=== PATIENT | male | born 1965 | race Caucasian/White ===

== ENCOUNTER 2016-06-29 08:47 | Emergency (ER) | payer MEDICAID ==
[2016-06-29 09:06] LABS: BASOPHIL# 0.1 X 10^3uL (0.0-0.1); BASOPHILS 1.2 % (0.0-2.0); EOSINOPHILS 3.7 % (0.0-6.0); EOSINOPHILS# 0.2 X 10^3uL (0.0-0.4); HEMATOCRIT 49.7 % (42.0-54.0); HEMOGLOBIN 17.3 g/dL (14.0-18.0); LYMPHOCYTES 50.2 % (20.0-40.0); LYMPHOCYTES# 2.3 X 10^3uL (0.8-3.8); MEAN CELL VOLUME 95.3 fL (84.0-102.0); MEAN CORPUS. HGB CONCENTRATION 34.8 g/dL (32.0-36.0); MEAN CORPUSCULAR HEMOGLOBIN 33.2 pg (29.0-35.0); MEAN PLATELET VOLUME 6.9 fL (7.4-10.4); MONOCYTES 9.3 % (2.0-10.0); MONOCYTES# 0.5 X 10^3uL (0.2-1.0); NEUTROPHILS 35.6 % (54.0-75.0); NEUTROPHILS# 1.8 X 10^3uL (2.6-6.7); PLATELET COUNT 246 X 10^3uL (130-440); RED BLOOD COUNT 5.22 X 10^6uL (4.20-6.10); RED CELL DISTRIBUTION WIDTH 13.1 % (11.5-14.5); WHITE BLOOD COUNT 4.9 X 10^3uL (3.9-10.7)
[2016-06-29] MEDS ORDERED: THIAMINE HCL 200 MG/2 ML VIAL ONE (09:12)
[2016-06-29] MEDS ORDERED: MAGNESIUM SULFATE 1 GM/2 ML VIAL ONE (09:12)
[2016-06-29] MEDS ORDERED: MULTIVITAMINS 10 ML VIAL IV ONE (09:13)
[2016-06-29] MEDS ORDERED: NORMAL SALINE 1,000 ML IV ONE (09:13)
[2016-06-29 09:27] LABS: ALBUMIN 4.2 g/dL (3.5-5.0); ALKALINE PHOSPHATASE 77 U/L (38-126); ALT 185 U/L (21-72); AMYLASE 31 U/L (30-110); AST 134 U/L (17-59); BILIRUBIN, DIRECT 0.6 mg/dL (0.0-0.4); BLOOD UREA NITROGEN 10 mg/dL (9-20); CALCIUM 8.5 mg/dL (8.4-10.2); CHLORIDE 109 mmol/L (98-107); EST GLOMERULAR FILTRATION RATE > 60 mL/min; ETHYL ALCOHOL 168 mg/dL (<10); GLUCOSE 104 mg/dL (70-100); LIPASE 184 U/L (23-300); MAGNESIUM 2.1 mg/dL (1.6-2.3); POTASSIUM 3.8 mmol/L (3.5-5.1); SODIUM 150 mmol/L (137-145); TOTAL PROTEIN 8.1 g/dL (6.3-8.2)
[2016-06-29] MEDS ORDERED: NICOTINE 21 MG PATCH ONE (09:28)
[2016-06-29 09:30] LABS: ACETAMINOPHEN < 10.0 ug/mL (10.0-30.0); SALICYLATE < 1.0 mg/dL (<20.0)
[2016-06-29] MEDS ORDERED: LORazepam 2 MG/ML INJ ONE ×3 (09:55→15:22)
[2016-06-29 09:56] LABS: THYROID STIMULATING HORMONE 0.85 uIU/mL (0.47-4.68)
--- NOTE | 2016-06-29 13:42 | ER PHYSICIAN DOCUMENTATION ---
Physician Documentation [facility] Name:Mansoor Tony Age:50 yrs Sex:Male :1965 Arrival Date:06/29/2016 Time:08:47 BedTrauma A Private MD:[facility] ED Luis Alberto Dong Disposition: 06/29 12:18 Chart complete. tl1 Disposition: 06/29/16 12:47 Transfer ordered to [facility]. Diagnosis are Alcohol (ETOH) Withdrawal, Adjustment Disorder w/Depressed Mood, Suicidal Ideations. - Reason for transfer: Specialty. - Accepting physician is Dr Bindu Higuera. - Condition is Good. COBRA Form completed? Yes Transfer - Mode of Transportation Ambulance HPI: 09:12 This 50 yrs old Male presents to ER via EMS with complaints of ETOH tl1 withdrawal and SI. 12:00 The patient presents to the emergency department with depression, a history of tl1 substance abuse, Type: tequila, 10 25 oz Margaritas a day.. Onset: The symptom(s)/episode began/occurred many years ago. Past psychiatric history: Prior diagnosis: depression, the patient does not have a previous inpatient psychiatric history, the patient's last psychiatric treatment was years ago. Severity of symptoms: At their worst the symptoms were severe in the emergency department the symptoms are unchanged. For the last 3 days he has had ongoing thoughts of suicide and his housemate has noted a knife by his bedside since then. He has had, at times, a plan to kill himself with the knife. He says he cannot have guns, but did not say why. Denies prior suicide attempts, but has been treated for depression in the past. Denies hallucinations or delusions. Stopped drinking 15 hrs [employer]. Does use marijuana. Denies other substance abuse. He is single, broke up with his fiance 6 months ago and lives with a woman, his best friend, in a platonic relationship.. Historical: - Allergies: No known drug Allergies; - Home Meds: 1. reflux medication 2. Wellbutrin XL Oral 3. Pepcid Oral 4. oxygen @ night 5. nicotine 21 mg/24 hr transdermal pt24 1 patch once daily - Tetanus: unknown. - Ebola Screening: : Patient negative for fever greater than or equal to 101.5 degrees Fahrenheit, and additional compatible Ebola Virus Disease symptoms. Patient denies exposure to infectious person. Patient denies travel to an Ebola-affected area in the 21 days before illness onset. No symptoms or risks identified at this time. . - Immunization history: Unable to Obtain. - Social history: Smoking status: Patient uses tobacco products and is smoker, current status unknown. Patient uses alcohol Patient uses alcohol on a daily basis. 10 beers with marguerites daily. marijuana. ROS: 12:10 Constitutional: Positive for fatigue, malaise. tl1 12:10 Abdomen/GI: Positive for abdominal pain, nausea, vomiting, Negative for hematemesis, black/tarry stool, rectal bleeding. 12:10 Psych: Positive for depression, suicidal ideation. 12:10 All other systems are negative. Exam: 12:11 Constitutional: The patient appears alert, awake, obese, in obvious distress, mildly tl1 distressed, obviously ill, restless, uncomfortable, Tremulous, anxious 12:11 Head/face: Exam is negative for acute changes. 12:11 Eyes: Pupils: equal, round, and reactive to light and accomodation. 12:11 ENT: External ear(s): are unremarkable, Mouth: is normal, Posterior pharynx: is normal, Breath odor: EtOH. 12:11 Neck: ROM/movement: is normal, Lymph nodes: no appreciated lymphadenopathy. 12:11 Cardiovascular: Rate: normal, Rhythm: regular, Heart sounds: normal. 12:11 Respiratory: Respirations: no acute changes, Breath sounds: are normal. 12:11 Abdomen/GI: Inspection: abdomen appears normal, Bowel sounds: active, Palpation: soft, mild abdominal tenderness, in all quadrants, Liver: no appreciated palpable abnormalities, tenderness, that is mild. 12:11 Back: CVA tenderness, is absent, vertebral tenderness, is not appreciated. 12:11 Musculoskeletal/extremity: Extremities: all appear grossly normal, with no appreciated pain with palpation. 12:11 Skin: Exam negative for acute changes. 12:11 Neuro: Orientation: is normal, Mentation: is normal, Memory: is normal, Cranial nerves: grossly normal, Motor: moves all fours, Gait: not tested. 12:11 Psych: Behavior/mood is pleasant, cooperative, anxious, depressed, Affect is flat, Oriented to person, place, time, Patient having thoughts of suicide. Judgement / Insight is normal. Delusions/hallucinations are not present. Vital Signs: 08:52 BP 129 / 104; Pulse 81; Resp 13; Temp 99.0(TE); Pulse Ox 94% on R/A; Weight 105.23 kg; cb Height 5 ft. 11 in. (180.34 cm); Pain 8/10; 09:17 BP 121 / 93; Pulse 81; Resp 15; Pulse Ox 94% on R/A; cb 09:30 BP 128 / 95; Pulse 78; Resp 16; Pulse Ox 93% on R/A; cb 09:45 BP 143 / 107; Pulse 78; Resp 18; Pulse Ox 95% on R/A; cb 10:00 BP 163 / 128; Pulse 85; Resp 26; Pulse Ox 95% on R/A; cb 10:16 BP 195 / 147; Pulse 83; Resp 24; cb 10:30 BP 175 / 128; Pulse 85; Resp 18; Pulse Ox 93% on R/A; cb 10:45 BP 149 / 105; Pulse 82; Resp 22; cb 12:34 BP 133 / 81; Pulse 82; Resp 22; Pulse Ox 97% ; cb 08:52 Body Mass Index 32.36 (105.23 kg, 180.34 cm) cb MDM: 09:11 Patient medically screened. tl1 12:16 Differential diagnosis: drug withdrawal. depression. Data reviewed: vital signs, nurses tl1 notes, lab test result(s), cardiac enzymes, CBC, drug level(s), electrolytes, hepatic panel, urinalysis, and as a result, I will *Transfer Patient. Counseling: I had a detailed discussion with the patient and/or guardian regarding: the historical points, exam findings, and any diagnostic results supporting the discharge/admit diagnosis, lab results, the need to transfer to another facility. Medication response: The patient's symptoms have improved. Response to treatment: the patient's symptoms have markedly improved after treatment, and as a result, I will admit patient. Physician consultation: Bindu Higuera was called at 11:00, was contacted at 11:10, regarding patient's condition, need to come to ED to see patient, and will see patient in ED, at [facility].. 06/29 09:20 Order name: CBC AUTO DIF, MDIF/RMOR IF IND; Complete Time: 20:24 EDMS 06/29 20:23 Interpretation: WHITE BLOOD COUNT 4.9; HEMOGLOBIN 17.3; HEMATOCRIT 49.7; PLATELET COUNT tl1 246; NEUTROPHILS 35.6; LYMPHOCYTES 50.2. 06/29 09:30 Order name: BASIC METABOLIC PANEL; Complete Time: 20:24 EDMS 06/29 20:23 Interpretation: SODIUM 150; POTASSIUM 3.8; CHLORIDE 109; CARBON DIOXIDE 28; GLUCOSE tl1 104; BLOOD UREA NITROGEN 10; CREATININE 1.0. 06/29 09:30 Order name: MAGNESIUM; Complete Time: 20:24 EDMS 06/29 20:23 Interpretation: Normal: MAGNESIUM 2.1. 06/29 09:30 Order name: HEPATIC PANEL; Complete Time: 20:24 EDMS 06/29 20:24 Interpretation: Normal Except: ALT 185; AST 134; BILIRUBIN, DIRECT 0.6. 06/29 09:30 Order name: AMYLASE; Complete Time: 20:24 EDMS 06/29 Interpretation: AMYLASE 31; Normal. 06/29 09:30 Order name: LIPASE; Complete Time: 20:24 EDMS 06/29 20:24 Interpretation: Normal: LIPASE 184. 06/29 09:30 Order name: SALICYLATE; Complete Time: 20:24 EDMS 06/29 20:24 Interpretation: Normal: SALICYLATE < 1.0. 06/29 09:30 Order name: ETHYL ALCOHOL; Complete Time: 20:24 EDMS 06/29 20:24 Interpretation: Abnormal: ETHYL ALCOHOL 168. 06/29 09:30 Order name: ACETAMINOPHEN; Complete Time: 20:24 EDMS 06/29 20:24 Interpretation: Normal: ACETAMINOPHEN < 10.0. 06/29 09:58 Order name: THYROID STIMULATING HORMONE; Complete Time: 20:24 EDMS 06/29 20:24 Interpretation: Normal: THYROID STIMULATING HORMONE 0.85. 06/29 10:59 Order name: URINE DRUG SCREEN, QUAL; Complete Time: 20:24 EDMS 06/29 20:24 Interpretation: Normal Except: THC PRESUMPTIVE POS; [place]EN[place] PRESUMPTIVE POS. 06/29 08:57 Order name: I & O; Complete Time: 08:58 cb 06/29 08:57 Order name: NPO; Complete Time: 08:58 cb 06/29 08:57 Order name: Pulse Ox Continuous; Complete Time: 08:58 cb Dispensed Medications: 09:12 Drug: Banana Bag - (NS 0.9% 1000 ml, folic acid 600 mcg, Thiamine 100 mg, Multivitamin cb 10 ml, Magnesium Sulfate 1 grams); Route: IV; Rate: calculated rate; Site: left antecubital; 09:51 Follow up: IV Status: Infusion continued; IV Intake: 1000ml cb 09:25 Drug: Nicotine Patch 1 patches; Route: Transdermal; Site: affected area; cb 12:05 Follow up: Response: No adverse reaction cb 09:49 Drug: Ativan 1 mg; Route: IVP; Site: left antecubital; cb 12:04 Follow up: Response: Marked relief of symptoms cb 09:50 Drug: NS 0.9% 1000 ml; Route: IV; Rate: 125 ml/hr; Site: left antecubital; cb 12:30 Follow up: IV Status: Completed infusion; IV Intake: 800ml cb 10:29 Drug: Ativan 0.5 mg; Route: IVP; Rate: per protocol; Infused Over: 3 mins; Site: left ma antecubital; 12:04 Follow up: Response: Blood pressure is lowered cb Point of Care Testing: Urine Dip: 10:57 pH: 7.0; ; Specific [place]: 1.015; Ketones: Negative; Glucose: Negative; Protein: ma Negative; Leukocytes: Negative; Nitrite: Negative ; Blood: Negative; Bilirubin: Negative ; Urobilinogen: Normal Signatures: Laquita Arrieta RN RN cb Abuso, Melanie, RN RN ma Roberts, Leslie, RN RN lpr Leigh, Tom, MD MD tl1
--- NOTE | 2016-06-29 13:42 | ER NURSING DOCUMENTATION ---
Nurse's Notes [facility] Name:Mansoor Tony Age:50 yrs Sex:Male :1965 Arrival Date:06/29/2016 Time:08:47 BedTrauma A Private MD:[facility] Diagnosis:Alcohol (ETOH) Withdrawal;Adjustment Disorder w/Depressed Mood;Suicidal Ideations Presentation: 06/29 08:50 Care prior to arrival: None. cb 08:50 Activity prior to arrival: Patient was at [facility] and called 911 for alcohol with cb suicide ideation. 08:52 Presenting complaint: EMS states: patient brought form [facility] via EMS due to cb suicidal thoughts and alcohol withdraw. Transition of care: Other [facility]. Notified ED Physician of patient's arrival and CC Dr. Balbuena notified. 08:52 Method Of Arrival: EMS: 410 cb 08:52 Acuity: BRANDEN 2 cb Triage Assessment: 08:55 General: Appears distressed, well groomed, Behavior is cooperative, with tremors. cb 08:55 Pain: Complains of pain in back, posterior aspect of left lateral abdomen, posterior cb aspect of right lateral abdomen, right upper quadrant and left upper quadrant Pain currently is 8 out of 10 on a pain scale. 08:55 EENT: No deficits noted. Neuro: Level of Consciousness is awake, alert, Oriented to cb person, place, time. Cardiovascular: Rhythm is regular. Respiratory: Airway is patent Trachea midline Respiratory effort is even, unlabored, Respiratory pattern is regular, symmetrical. GI: Abdomen is obese, Bowel sounds present X 4 quads. Reports pain all over. : No deficits noted. Derm: No deficits noted. Musculoskeletal: No deficits noted. Historical: - Allergies: No known drug Allergies; - Home Meds: 1. reflux medication 2. Wellbutrin XL Oral 3. Pepcid Oral 4. oxygen @ night 5. nicotine 21 mg/24 hr transdermal pt24 1 patch once daily - Tetanus: unknown. - Ebola Screening: : Patient negative for fever greater than or equal to 101.5 degrees Fahrenheit, and additional compatible Ebola Virus Disease symptoms. Patient denies exposure to infectious person. Patient denies travel to an Ebola-affected area in the 21 days before illness onset. No symptoms or risks identified at this time. . - Immunization history: Unable to Obtain. - Social history: Smoking status: Patient uses tobacco products and is smoker, current status unknown. Patient uses alcohol Patient uses alcohol on a daily basis. 10 beers with marguerites daily. marijuana. Screenin:20 Infectious Disease Risk Hepatitis. Abuse screen: Denies threats or abuse. Denies cb injuries from another. Nutritional screening: No deficits noted. Suicide Risk Assessment: Suicidal Thinking Present - Yes ( 2 points), Past Attempts - No (0 points), Family History of Suicide - Credible Suicide Plan - Yes (3 points), Means to Kill Self Available - Yes (3 points), Has Serious Health Problem - Yes (1 point), Lives Alone -. Vital Signs: 08:52 BP 129 / 104; Pulse 81; Resp 13; Temp 99.0(TE); Pulse Ox 94% on R/A; Weight 105.23 kg; cb Height 5 ft. 11 in. (180.34 cm); Pain 8/10; 09:17 BP 121 / 93; Pulse 81; Resp 15; Pulse Ox 94% on R/A; cb 09:30 BP 128 / 95; Pulse 78; Resp 16; Pulse Ox 93% on R/A; cb 09:45 BP 143 / 107; Pulse 78; Resp 18; Pulse Ox 95% on R/A; cb 10:00 BP 163 / 128; Pulse 85; Resp 26; Pulse Ox 95% on R/A; cb 10:16 BP 195 / 147; Pulse 83; Resp 24; cb 10:30 BP 175 / 128; Pulse 85; Resp 18; Pulse Ox 93% on R/A; cb 10:45 BP 149 / 105; Pulse 82; Resp 22; cb 12:34 BP 133 / 81; Pulse 82; Resp 22; Pulse Ox 97% ; cb 08:52 Body Mass Index 32.36 (105.23 kg, 180.34 cm) cb ED Course: 08:51 Patient arrived in ED. ds 08:52 [facility] is Private Physician. ds 08:52 Laquita Arrieta, HARISH is Primary Nurse. cb 08:54 Triage completed. cb 08:55 Inserted peripheral IV: 18 gauge in left antecubital area and blood collected. cb 08:55 Labs drawn. (by ED staff). Sent per order to lab. cb 09:00 Valuables Remains with patient Patient has correct armband on for positive cb identification. Placed in gown. Bed in low position. Call light in reach. Side rails up X2. Seizure precautions initiated. Seizure pads on bed close monitoring by staff. 09:00 telemetry monitor on. Pulse ox on. NIBP on. Lights dimmed. Warm blanket given. cb 09:10 Luis Alberto Balbuena MD is Attending Physician. tl1 11:45 Diet: Patient given regular meal. cb Administered Medications: 09:12 Drug: Banana Bag - (NS 0.9% 1000 ml, folic acid 600 mcg, Thiamine 100 mg, Multivitamin cb 10 ml, Magnesium Sulfate 1 grams); Route: IV; Rate: calculated rate; Site: left antecubital; 09:51 Follow up: IV Status: Infusion continued; IV Intake: 1000ml cb 09:25 Drug: Nicotine Patch 1 patches; Route: Transdermal; Site: affected area; cb 12:05 Follow up: Response: No adverse reaction cb 09:49 Drug: Ativan 1 mg; Route: IVP; Site: left antecubital; cb 12:04 Follow up: Response: Marked relief of symptoms cb 09:50 Drug: NS 0.9% 1000 ml; Route: IV; Rate: 125 ml/hr; Site: left antecubital; cb 12:30 Follow up: IV Status: Completed infusion; IV Intake: 800ml cb 10:29 Drug: Ativan 0.5 mg; Route: IVP; Rate: per protocol; Infused Over: 3 mins; Site: left ma antecubital; 12:04 Follow up: Response: Blood pressure is lowered cb Point of Care Testing: Urine Dip: 10:57 pH: 7.0; ; Specific [place]: 1.015; Ketones: Negative; Glucose: Negative; Protein: ma Negative; Leukocytes: Negative; Nitrite: Negative ; Blood: Negative; Bilirubin: Negative ; Urobilinogen: Normal Intake: 09:51 IV: 1000ml; Total: 1000ml. cb 12:30 IV: 800ml; Total: 1800ml. cb Outcome: 12:34 Transferred: Patient will be transferred to: [facility] [place]. Facility cb Acceptance Time: June 29, 2016 at 12:34 Patient's face sheet was faxed to accepting facility. Face Sheet included patient's name, address, age, gender, contact information and insurance information. Patient will be transported by: [facility] ground. Report called to: Gianna Nurse and Physician Charting and Notes were sent to Accepting Facility. All tests and/or procedures with results, if applicable, were sent to accepting facility. 12:34 Condition: stable 12:34 Instructed on need for transfer 12:47 ER care complete, transfer ordered by . cb 13:42 Patient left the ED. cb Signatures: Laquita Arrieta, Jessenia Lin RN, cb, RN RN ma Srot, Maria Del Carmen, Reg Reg Wendy Yuen RN RN lpr Leigh, Tom, MD MD tl1
== END 2016-06-29 13:42 | disposition short-term general hospital (02) ==
LOC: EEVIPCON 08:47 → ER 08:47
DX: F10.239 Alcohol dependence with withdrawal, unspecified (principal); F43.21 Adjustment disorder with depressed mood; R45.851 Suicidal ideations; R10.84 Generalized abdominal pain; R53.83 Other fatigue; R53.81 Other malaise; F12.10 Cannabis abuse, uncomplicated; F13.10 Sedative, hypnotic or anxiolytic abuse, uncomplicated; Z79.899 Other long term (current) drug therapy
CPT/HCPCS: 80048; 80076; 80305; 80307; 80320; 80329; 82150; 83690; 83735; 84443; 85025; 96361; 96365; 96375; 96376; 99285; A0425; A0427; A0429; J2060; J3475; J7030; S4990

== ENCOUNTER 2016-07-07 20:48 | Emergency (ER) | payer MEDICAID ==
[2016-07-07 21:12] LABS: URINE MUCUS NONE SEEN (Up to 25%); URINE RBC NONE SEEN (0-5/hpf)
[2016-07-07 21:14] LABS: BASOPHIL# 0.1 X 10^3uL (0.0-0.1); BASOPHILS 1.4 % (0.0-2.0); EOSINOPHILS 2.1 % (0.0-6.0); EOSINOPHILS# 0.2 X 10^3uL (0.0-0.4); HEMATOCRIT 48.2 % (42.0-54.0); HEMOGLOBIN 16.6 g/dL (14.0-18.0); LYMPHOCYTES# 4.7 X 10^3uL (0.8-3.8); MEAN CELL VOLUME 95.3 fL (84.0-102.0); MEAN CORPUS. HGB CONCENTRATION 34.5 g/dL (32.0-36.0); MEAN CORPUSCULAR HEMOGLOBIN 32.9 pg (29.0-35.0); MEAN PLATELET VOLUME 7.5 fL (7.4-10.4); MONOCYTES 12.6 % (2.0-10.0); MONOCYTES# 1.2 X 10^3uL (0.2-1.0); NEUTROPHILS 32.4 % (54.0-75.0); PLATELET COUNT 312 X 10^3uL (130-440); RED BLOOD COUNT 5.06 X 10^6uL (4.20-6.10); WHITE BLOOD COUNT 9.2 X 10^3uL (3.9-10.7)
[2016-07-07 21:23] LABS: LYMPHOCYTES 51.5 % (20.0-40.0)
[2016-07-07 21:24] LABS: URINE APPEARANCE CLEAR; URINE COLOR YELLOW
[2016-07-07 21:28] LABS: ALBUMIN 4.2 g/dL (3.5-5.0); ALKALINE PHOSPHATASE 80 U/L (38-126); ALT 161 U/L (21-72); AST 135 U/L (17-59); BILIRUBIN, DIRECT 0.2 mg/dL (0.0-0.4); BILIRUBIN, TOTAL 0.6 mg/dL (0.2-1.3); BLOOD UREA NITROGEN 7 mg/dL (9-20); CALCIUM 8.6 mg/dL (8.4-10.2); CHLORIDE 109 mmol/L (98-107); EST GLOMERULAR FILTRATION RATE > 60 mL/min; SODIUM 146 mmol/L (137-145); TOTAL PROTEIN 7.7 g/dL (6.3-8.2)
[2016-07-07 21:33] LABS: LIPASE 415 U/L (23-300)
[2016-07-07 21:35] LABS: URINE BACTERIA NONE SEEN (<10/hpf); URINE BILIRUBIN NEGATIVE (NEGATIVE); URINE BLOOD NEGATIVE (NEGATIVE); URINE GLUCOSE NORMAL (NEGATIVE); URINE KETONE NEGATIVE (NEGATIVE); URINE LEUKOCYTE ESTERASE NEGATIVE (NEGATIVE); URINE NITRITE NEGATIVE (NEGATIVE); URINE PROTEIN NEGATIVE (NEG - TRACE); URINE SPECIFIC GRAVITY < or = 1.005 (0.001-1.035); URINE SQUAMOUS EPITHELIAL CELL 0-5/hpf (<= 15/hpf); URINE UROBILINOGEN NORMAL (NEG-1mg/dL); URINE WBC 0-4/hpf (0-4/hpf)
[2016-07-07 21:38] LABS: GLUCOSE 245 mg/dL (70-100); SALICYLATE < 1.0 mg/dL (<20.0)
[2016-07-07 21:39] LABS: ACETAMINOPHEN < 10.0 ug/mL (10.0-30.0); ETHYL ALCOHOL 322 mg/dL (<10)
[2016-07-07] MEDS ORDERED: MAGNESIUM SULFATE 1 GM/2 ML VIAL ONE (21:49)
[2016-07-07] MEDS ORDERED: NORMAL SALINE 1,000 ML IV ONE (21:50)
[2016-07-07] MEDS ORDERED: MULTIVITAMINS 10 ML VIAL IV ONE (21:50)
[2016-07-07] MEDS ORDERED: THIAMINE HCL 200 MG/2 ML VIAL ONE (21:50)
[2016-07-07 21:57] LABS: THYROID STIMULATING HORMONE 1.45 uIU/mL (0.47-4.68)
--- NOTE | 2016-07-07 23:41 | ER NURSING DOCUMENTATION ---
Nurse's Notes [facility] Name:Mansoor Tony Age:50 yrs Sex:Male :1965 Arrival Date:07/07/2016 Time:20:48 BedTrauma A Private MD:Carisa Chen Diagnosis:Major Depression with Suicidal Ideation;Alcohol (ETOH) Intoxication, Nondependent;Alcohol Cirrhosis Liver;Hepatitis C Presentation: 07/07 20:52 Presenting complaint: EMS states: intoxicated, had threatened to kill himself at home lb tonight. recently in detox program last week. Transition of care: Home. 20:52 Acuity: BRANDEN 2 lb 20:52 Method Of Arrival: EMS: 410 lb 21:11 Notified ED Physician of Dr. Royal notified. lb Triage Assessment: 20:56 General: Appears. lb 21:11 General: Appears unkempt, speech slurred due to etoh. Behavior is agitated, restless, lb Smells of alcohol. Pain: Denies pain. Historical: - Allergies: Unable to obtain; - PMHx: Unable to obtain; - PSHx: Unable to obtain; - Tetanus: < 10 years. - Ebola Screening: : Patient negative for fever greater than or equal to 101.5 degrees Fahrenheit, and additional compatible Ebola Virus Disease symptoms. Patient denies exposure to infectious person. Patient denies travel to an Ebola-affected area in the 21 days before illness onset. No symptoms or risks identified at this time. . - Immunization history: Flu Vaccine < 1 year. - Social history: Smoking status: Patient uses tobacco products, current every day smoker. Patient uses alcohol marijuana. - Code Status:: Full code. Screenin:13 Infectious Disease Risk Hepatitis. Abuse screen: Denies threats or abuse. Denies lb injuries from another. Nutritional screening: No deficits noted. Suicide Risk Assessment: Suicidal Thinking Present - Yes ( 2 points), Past Attempts - Yes (1 point), Means to Kill Self Available - Yes (3 points), Has Serious Health Problem - Yes (1 point), Total Suicide Risk Assessment Score: Score of 3 or Greater (Substantial risk for suicide). Patient placement close to nurses station. Assessment: 21:13 See Triage Assessment done by same RN. lb Vital Signs: 21:12 BP 166 / 103; Pulse 96; Resp 22; Pulse Ox 90% on R/A; Weight 103.42 kg; Height 6 ft. lb (182.88 cm); Pain 0/10; 21:35 BP 146 / 97; Pulse 94; Resp 19; Pulse Ox 94% on R/A; Pain 0/10; lb 21:12 Body Mass Index 30.92 (103.42 kg, 182.88 cm) lb ED Course: 20:49 Patient arrived in ED. ma1 20:49 Carisa Chen MD is Private Physician. ma1 20:52 Helen Ruiz is Primary Nurse. lb 20:56 Triage completed. lb 21:15 Valuables Placed in gown. Bed in low position. Call light in reach. Side rails up X2. lb Seizure precautions initiated. Seizure pads on bed close monitoring by staff bedside monitoring initiated. 21:19 Hawk Royal MD is Attending Physician. sc 21:46 Maintain field IV. Dressing intact. Site clean & dry. Gauge & site: #18 right forearm. lb Administered Medications: 21:45 Drug: Banana Bag - (NS 0.9% 1000 ml, folic acid 600 mcg, Thiamine 100 mg, Multivitamin lb 10 ml, Magnesium Sulfate 1 grams); Route: IV; Rate: calculated rate; Site: right forearm; 21:50 Follow up: IV Status: Completed infusion lb Outcome: 21:48 ER care complete, transfer ordered by . sc 22:01 Transferred: Patient will be transferred to: [facility]. Facility lb Acceptance Time: July 07, 2016 at 21:55 Patient's face sheet was faxed to accepting facility. Face Sheet included patient's name, address, age, gender, contact information and insurance information. Patient will be transported by: [facility] ground. Report called to: Armida MOREIRA in ED Nurse and Physician Charting and Notes were sent to Accepting Facility. All tests and/or procedures with results, if applicable, were sent to accepting facility. 22:01 Condition: unchanged 22:01 Report given to Armida MOREIRA 22:04 Instructed on need for transfer lb 23:41 Patient left the ED. lpr Signatures: Hawk Royal MD MD sc Wendy Torres RN RN lpr Helen Ruiz [facility]
--- NOTE | 2016-07-07 23:41 | ER PHYSICIAN DOCUMENTATION ---
Physician Documentation [facility] Name:Mansoor Tony Age:50 yrs Sex:Male :1965 Arrival Date:07/07/2016 Time:20:48 BedTrauma A Private MD:Carisa Chen ED, Scott Disposition: 07/07/16 21:48 Transfer ordered to [facility]. Diagnosis are Major Depression with Suicidal Ideation, Alcohol (ETOH) Intoxication, Nondependent, Alcohol Cirrhosis Liver, Hepatitis C. - Reason for transfer: Specialty. - Accepting physician is Dr. Castro. - Condition is Serious. - Problem is an acute exacerbation. - Symptoms are unchanged. COBRA Form completed? Yes Transfer - Mode of Transportation Ambulance HPI: 07/07 21:34 This 50 yrs old Male presents to ER via EMS with complaints of ETOH Abuse. sc 21:34 The patient presents to the emergency department with depression, a history of sc substance abuse, Type: beer, heroin, Hep C positive from IVDA, suicide ideation. Onset: The symptom(s)/episode began/occurred at an unknown time. Past psychiatric history: the patient has a previous inpatient psychiatric history, last week. Associated signs and symptoms: Pertinent positives; depression, substance abuse. Severity of symptoms: At their worst the symptoms were severe. wants to shoot himself, . Historical: - Allergies: Unable to obtain; - PMHx: Unable to obtain; - PSHx: Unable to obtain; - Tetanus: < 10 years. - Ebola Screening: : Patient negative for fever greater than or equal to 101.5 degrees Fahrenheit, and additional compatible Ebola Virus Disease symptoms. Patient denies exposure to infectious person. Patient denies travel to an Ebola-affected area in the 21 days before illness onset. No symptoms or risks identified at this time. . - Immunization history: Flu Vaccine < 1 year. - Social history: Smoking status: Patient uses tobacco products, current every day smoker. Patient uses alcohol marijuana. - Code Status:: Full code. ROS: 21:35 Constitutional: Negative for fever, chills, and weight loss. sc Eyes: Negative for injury, pain, redness, and discharge. ENT: Negative for injury, pain, and discharge. Neck: Negative for injury, pain, and swelling. Cardiovascular: Negative for chest pain, palpitations, and edema. Respiratory: Negative for shortness of breath, cough, wheezing, and pleuritic chest pain. Abdomen/GI: Negative for abdominal pain, nausea, vomiting, diarrhea, and constipation. Back: Negative for injury and pain. MS/Extremity: Negative for injury and deformity. Skin: Negative for injury, rash, and discoloration. 21:35 Neuro: Negative for headache, weakness, numbness, tingling, and seizure. sc 21:35 Psych: Positive for depression, alcohol dependence, suicidal ideation. Exam: Constitutional: This is a well developed, well nourished patient who is awake, alert, and in no acute distress. Head/Face: Normocephalic, atraumatic. Eyes: Pupils equal round and reactive to light, extra-ocular motions intact. Lids and lashes normal. Conjunctiva and sclera are non-icteric and not injected. Cornea within normal limits. Periorbital areas with no swelling, redness, or edema. ENT: Nares patent. No nasal discharge, no septal abnormalities noted. Tympanic membranes are normal and external auditory canals are clear. Oropharynx with no redness, swelling, or masses, exudates, or evidence of obstruction, uvula midline. Mucous membranes moist. Neck: Trachea midline, no thyromegaly or masses palpated, and no cervical lymphadenopathy. Supple, full range of motion without nuchal rigidity, or vertebral point tenderness. No meningismus. Chest/axilla: Normal chest wall appearance and motion. Nontender with no deformity. No lesions are appreciated. Cardiovascular: Regular rate and rhythm with a normal S1 and S2. No gallops, murmurs, or rubs. Normal PMI, no JVD. No pulse deficits. Respiratory: Lungs have equal breath sounds bilaterally, clear to auscultation and percussion. No rales, rhonchi or wheezes noted. No increased work of breathing, no retractions or nasal flaring. Abdomen/GI: Soft, non-tender, with normal bowel sounds. No distension or tympany. No guarding or rebound. No evidence of tenderness throughout. Back: No spinal tenderness. No costovertebral tenderness. Full range of motion. 21:36 Skin: Warm, dry with normal turgor. Normal color with no rashes, no lesions, and no sc evidence of cellulitis. 21:36 Psych: Behavior/mood is aggressive, suicidal, depressed, Affect is animated, Oriented to person, place, time, Patient having thoughts of suicide. Judgement / Insight is impaired. Delusions/hallucinations are not present. Vital Signs: 21:12 BP 166 / 103; Pulse 96; Resp 22; Pulse Ox 90% on R/A; Weight 103.42 kg; Height 6 ft. lb (182.88 cm); Pain 0/10; 21:35 BP 146 / 97; Pulse 94; Resp 19; Pulse Ox 94% on R/A; Pain 0/10; lb 21:12 Body Mass Index 30.92 (103.42 kg, 182.88 cm) lb MDM: 21:19 Patient medically screened. wi 21:37 Differential diagnosis: depression, intoxication and suicidal ideation. Data reviewed: wi vital signs, nurses notes, old medical records, lab test result(s), and as a result, I will *Transfer Patient. Counseling: I had a detailed discussion with the patient and/or guardian regarding: the historical points, exam findings, and any diagnostic results supporting the discharge/admit diagnosis, lab results, the need to transfer to another facility. 07/07 21:24 Order name: CBC AUTO DIF, MDIF/RMOR IF IND [facility] 07/07 21:48 Interpretation: Normal. wi 07/07 21:36 Order name: UA W/ MICRO -CULTURE IF IND; Complete Time: 21:49 [facility] 07/07 21:49 Interpretation: Normal. wi 02 21:36 Order name: URINE DRUG SCREEN, QUAL; Complete Time: 21:49 [facility] 07/07 21:49 Interpretation: Abnormal: [place]EN[place] PRESUMPTIVE POS. wi 07/07 21:40 Order name: BASIC METABOLIC PANEL [facility] 02 21:49 Interpretation: Normal Except: POTASSIUM 3.0; GLUCOSE 245. wi 07/07 21:40 Order name: HEPATIC PANEL [facility] 07/07 21:49 Interpretation: Normal Except: ALT 161; AST 135. wi 07/07 21:40 Order name: LIPASE EDND 02 21:49 Interpretation: Abnormal: LIPASE 415. wi 02 21:40 Order name: SALICYLATE [facility] 07/07 21:49 Interpretation: Normal. wi 02 21:40 Order name: ETHYL ALCOHOL [facility] 07/07 21:49 Interpretation: Abnormal: ETHYL ALCOHOL 322. wi 07/07 21:40 Order name: ACETAMINOPHEN EDMS 07/07 21:49 Interpretation: Normal. sc 07/07 22:01 Order name: THYROID STIMULATING HORMONE EDND 07/07 21:00 Order name: Continuous Cardiac Monitoring; Complete Time: 21:00 lb 07/07 21:00 Order name: I & O; Complete Time: 21:01 lb 07/07 21:00 Order name: Iv Saline Lock; Complete Time: 21:00 lb 07/07 21:00 Order name: NPO; Complete Time: 21: lb 07/07 21:00 Order name: Pulse Ox Continuous; Complete Time: 21:00 lb 07/07 21:00 Order name: Suicide Precautions; Complete Time: 21:11 lb Dispensed Medications: 21:45 Drug: Banana Bag - (NS 0.9% 1000 ml, folic acid 600 mcg, Thiamine 100 mg, Multivitamin lb 10 ml, Magnesium Sulfate 1 grams); Route: IV; Rate: calculated rate; Site: right forearm; 21:50 Follow up: IV Status: Completed infusion lb Signatures: Hawk Royal MD MD sc Roberts, Leslie, RN RN lpr Helen Ruiz lb
== END 2016-07-07 23:41 | disposition short-term general hospital (02) ==
LOC: EEVIPCON 20:48 → ER 20:48
DX: F32.9 Major depressive disorder, single episode, unspecified (principal); R45.851 Suicidal ideations; K70.30 Alcoholic cirrhosis of liver without ascites; F10.229 Alcohol dependence with intoxication, unspecified; B19.20 Unspecified viral hepatitis C without hepatic coma; E87.6 Hypokalemia; F13.10 Sedative, hypnotic or anxiolytic abuse, uncomplicated; F17.210 Nicotine dependence, cigarettes, uncomplicated; Z74.3 Need for continuous supervision
CPT/HCPCS: 80048; 80076; 80305; 80307; 80320; 80329; 81001; 83690; 84443; 85025; 96374; 99285; A0425; A0429; J3475; J7030

== ENCOUNTER 2016-07-17 17:52 | Emergency (ER) | payer MEDICAID ==
[2016-07-17] MEDS ORDERED: FAMOTIDINE IN SALINE, ISO-OSM 50 ML IV ONE (18:35)
[2016-07-17] MEDS ORDERED: MAG-AL PLUS XS SUSP 30 ML UDC ONE (18:35)
[2016-07-17] MEDS ORDERED: LIDOCAINE VISCOUS 2% 15 ML UDC ONE (18:35)
[2016-07-17] MEDS ORDERED: ACETAMINOPHEN 325 MG TABLET PO ONE (18:43)
[2016-07-17] MEDS ORDERED: THIAMINE HCL 200 MG/2 ML VIAL ONE (18:43)
[2016-07-17] MEDS ORDERED: MAGNESIUM SULFATE 1 GM/2 ML VIAL ONE (18:43)
[2016-07-17] MEDS ORDERED: MULTIVITAMINS 10 ML VIAL IV ONE (18:43)
[2016-07-17] MEDS ORDERED: NORMAL SALINE 1,000 ML IV ONE (18:43)
[2016-07-17 18:44] LABS: BASOPHIL# 0.2 X 10^3uL (0.0-0.1); BASOPHILS 2.4 % (0.0-2.0); EOSINOPHILS# 0.2 X 10^3uL (0.0-0.4); HEMOGLOBIN 16.2 g/dL (14.0-18.0); LYMPHOCYTES# 1.8 X 10^3uL (0.8-3.8); MEAN CELL VOLUME 94.3 fL (80.0-100.0); MEAN CORPUS. HGB CONCENTRATION 34.6 g/dL (32.0-36.0); MEAN CORPUSCULAR HEMOGLOBIN 32.6 pg (29.0-35.0); MEAN PLATELET VOLUME 8.2 fL (7.4-10.4); MONOCYTES# 1.4 X 10^3uL (0.2-1.0); NEUTROPHILS 55.6 % (54.0-75.0); NEUTROPHILS# 4.5 X 10^3uL (2.6-6.7); PLATELET COUNT 231 X 10^3uL (130-440); RED BLOOD COUNT 4.98 X 10^6uL (4.20-6.10); WHITE BLOOD COUNT 8.1 X 10^3uL (3.9-10.7)
[2016-07-17 18:45] LABS: ALBUMIN 4.5 g/dL (3.5-5.0); ALKALINE PHOSPHATASE 74 U/L (38-126); ALT 91 U/L (21-72); AST 37 U/L (17-59); BILIRUBIN, DIRECT 0.4 mg/dL (0.0-0.4); BILIRUBIN, TOTAL 0.9 mg/dL (0.2-1.3); BLOOD UREA NITROGEN 23 mg/dL (9-20); CALCIUM 9.3 mg/dL (8.4-10.2); CHLORIDE 100 mmol/L (98-107); CREATININE 1.1 mg/dL (0.7-1.3); EST GLOMERULAR FILTRATION RATE > 60 mL/min; GLUCOSE 112 mg/dL (70-100); LIPASE 193 U/L (23-300); POTASSIUM 3.6 mmol/L (3.5-5.1); SODIUM 136 mmol/L (137-145); TOTAL PROTEIN 8.4 g/dL (6.3-8.2)
[2016-07-17 18:49] LABS: ETHYL ALCOHOL < 10 mg/dL (<10)
[2016-07-17] MEDS ORDERED: SULFAMETHOXAZOLE/TMP DS PREPAC 1 TAB TAB PO ONE (20:34)
--- NOTE | 2016-07-17 20:59 | ER PHYSICIAN DOCUMENTATION ---
Physician Documentation [facility] Name:Mansoor Tony Age:50 yrs Sex:Male :1965 Arrival Date:07/17/2016 Time:17:52 Bed1 Private MD:Marcos, [facility] [place]ie[place]awk Disposition: 07/17/16 20:22 Discharged to Home/Self Care. Impression: Gastritis, Bursitis Olecranon. - Condition is Good. - Discharge Instructions: BURSITIS, GASTRITIS vs. ULCER. - Prescriptions for oxycodone 5 mg Oral capsule - take 1 capsule by ORAL route every 6 hours as needed for pain; 10 capsule. Bactrim DS 160- 800 mg Oral Tablet - take 1 tablet by ORAL route every 12 hours for 7 days; 14 tablet. - Medical Reconciliation form form. - Follow up: Loi Miranda MD; When: 1 - 2 days; Reason: Recheck today's complaints. - Problem is new. - Symptoms have improved. HPI: 07/17 20:09 This 50 yrs old Male presents to ER via Private Vehicle with complaints of sc Abdominal Pain, R ELBOW PAIN. 20:09 The patient presents with abdominal pain in the epigastric area, in the left upper sc quadrant. Onset: The symptoms/episode began/occurred 2 day(s) ago. The symptoms do not radiate. Associated signs and symptoms: Pertinent positives: fever, right elbow pain and redness. Modifying factors: The symptoms are alleviated by nothing, the symptoms are aggravated by orange juice. Severity of pain: At its worst the pain was severe in the emergency department the pain has improved. Historical: - Allergies: No known drug Allergies; - Home Meds: 1. Omeprazole Oral 2. amlodipine oral 3. beclomethasone 4. Hydroxyzine Pamoate Oral 5. ipratropium-albuterol Inhl 6. Bupropion Oral 7. Famotidine Oral 8. gabapentin oral 9. Metoprolol Tartrate Oral 10. Mirtazapine Oral - PMHx: hep C; DEPRESSION; HYPERTENSION; - PSHx: lung; - Tetanus: unknown. - Ebola Screening: : Patient denies exposure to infectious person. Patient denies travel to an Ebola-affected area in the 21 days before illness onset. . - Social history: Smoking status: Patient uses tobacco products, current every day smoker. Patient uses alcohol trying to stop. marijuana. ROS: 20:10 Eyes: Negative for injury, pain, redness, and discharge. sc ENT: Negative for injury, pain, and discharge. Neck: Negative for injury, pain, and swelling. Cardiovascular: Negative for chest pain, palpitations, and edema. Respiratory: Negative for shortness of breath, cough, wheezing, and pleuritic chest pain. Back: Negative for injury and pain. Skin: Negative for injury, rash, and discoloration. 20:10 Neuro: Negative for headache, weakness, numbness, tingling, and seizure. sc 20:10 Constitutional: Positive for fever. 20:10 Abdomen/GI: Positive for abdominal pain, Negative for constipation, dysphagia, black/tarry stool. 20:10 MS/extremity: Positive for erythema, pain, warmth. Exam: Constitutional: This is a well developed, well nourished patient who is awake, alert, and in no acute distress. Head/Face: Normocephalic, atraumatic. Eyes: Pupils equal round and reactive to light, extra-ocular motions intact. Lids and lashes normal. Conjunctiva and sclera are non-icteric and not injected. Cornea within normal limits. Periorbital areas with no swelling, redness, or edema. ENT: Nares patent. No nasal discharge, no septal abnormalities noted. Tympanic membranes are normal and external auditory canals are clear. Oropharynx with no redness, swelling, or masses, exudates, or evidence of obstruction, uvula midline. Mucous membranes moist. Neck: Trachea midline, no thyromegaly or masses palpated, and no cervical lymphadenopathy. Supple, full range of motion without nuchal rigidity, or vertebral point tenderness. No meningismus. Chest/axilla: Normal chest wall appearance and motion. Nontender with no deformity. No lesions are appreciated. Cardiovascular: Regular rate and rhythm with a normal S1 and S2. No gallops, murmurs, or rubs. Normal PMI, no JVD. No pulse deficits. Respiratory: Lungs have equal breath sounds bilaterally, clear to auscultation and percussion. No rales, rhonchi or wheezes noted. No increased work of breathing, no retractions or nasal flaring. Back: No spinal tenderness. No costovertebral tenderness. Full range of motion. Skin: Warm, dry with normal turgor. Normal color with no rashes, no lesions, and no evidence of cellulitis. 20:11 Neuro: Awake and alert, GCS 15, oriented to person, place, time, and situation. az Cranial nerves II-XII grossly intact. Motor strength 5/5 in all extremities. Sensory grossly intact. Cerebellar exam normal. Normal gait. 20:11 Abdomen/GI: Inspection: abdomen appears normal, Bowel sounds: normal, Palpation: nontender, rebound tenderness, is not appreciated. 20:11 Musculoskeletal/extremity: Extremities: grossly normal except: noted in the right arm and right elbow: erythema, pain, tenderness, ROM: intact in all extremities, Circulation is intact in all extremities. Vital Signs: 18:00 BP 126 / 104; Pulse 123; Resp 18; Temp 103.1; Pulse Ox 91% on R/A; Pain 10/10; st 19:19 BP 115 / 83; Pulse 90; Resp 16; Pulse Ox 94% on 2 lpm NC; Pain 8/10; lb 19:29 Temp 101; lb 20:49 BP 115 / 88; Pulse 110; Resp 20; Pulse Ox 94% ; Pain 7/10; lb MDM: 18:00 Patient medically screened. az 20:21 Differential diagnosis: Cholelithiasis, gastritis, pancreatitis. Data reviewed: vital sc signs, nurses notes, old medical records, lab test result(s), and as a result, I will discharge patient, administer antibiotics. Counseling: I had a detailed discussion with the patient and/or guardian regarding: the historical points, exam findings, and any diagnostic results supporting the discharge/admit diagnosis, lab results, the need for outpatient follow up, with the patient's primary care provider. Medication response: The patient's symptoms have improved. 07/17 18:50 Order name: BASIC METABOLIC PANEL; Complete Time: 19:26 [facility] 07/17 19:25 Interpretation: Normal. az 07/17 18:50 Order name: HEPATIC PANEL; Complete Time: 19:26 EDMN 07/17 19:25 Interpretation: Normal Except: ALT 91. az 07/17 18:50 Order name: LIPASE; Complete Time: 19:26 EDMN 07/17 19:25 Interpretation: Normal. az 07/17 18:50 Order name: ETHYL ALCOHOL; Complete Time: 19:26 EDMN 07/17 19:25 Interpretation: Normal. az 07/17 18:51 Order name: CBC AUTO DIF, MDIF/RMOR IF IND; Complete Time: 19:26 EDMS 07/17 19:25 Interpretation: Normal. az 07/17 18:19 Order name: Urine Dip; Complete Time: 20:57 sc Dispensed Medications: Completed: Banana Bag - (NS 0.9% 1000 ml, folic acid 600 mcg, Thiamine 100 mg, Multivitamin 10 ml, Magnesium Sulfate 1 grams) IV at calculated rate once 18:29 Drug: Pepcid 20 mg; Route: IVPB; Site: right antecubital; st 19:35 Follow up: Response: Pain is decreased lb 20:56 Follow up: IV Status: Completed infusion; IV Intake: 100ml lb 18:29 Drug: GI Cocktail w/o Donnatol - (Maalox Suspension 30 ml, Lidocaine Liquid 2 % 15 ml); st Route: PO; 19:35 Follow up: Response: Pain is decreased lb 18:38 Drug: Banana Bag - (NS 0.9% 1000 ml, folic acid 600 mcg, Thiamine 100 mg, Multivitamin st 10 ml, Magnesium Sulfate 1 grams); Route: IV; Rate: calculated rate; Site: right antecubital; 19:36 Follow up: Response: No adverse reaction; IV Intake: 1000ml lb 20:56 Follow up: IV Status: Completed infusion; IV Intake: 1000ml lb 18:38 Drug: Tylenol 487 mg; Route: PO; st 20:26 Drug: Bactrim (160 mg-800 mg (DS) 1 tabs; Route: PO; lb 20:56 Follow up: Response: Pharmacy closed - take home med pack lb 20:26 Drug: oxyCODONE 5 mg; Route: PO; lb 20:56 Follow up: Response: Pharmacy closed - take home med pack lb Point of Care Testing: Urine Dip: 19:29 pH: 5.5; ; Specific [place]: 1.030; Ketones: Negative; Glucose: Negative; Protein: lb Negative; Leukocytes: Negative; Nitrite: Negative ; Blood: Negative; Bilirubin: Negative ; Urobilinogen: Normal Signatures: Krystina Nicolas RN RN st Hawk Royal MD MD sc Bollock, Lynda lb
--- NOTE | 2016-07-17 20:59 | ER NURSING DOCUMENTATION ---
Nurse's Notes [facility] Name:Mansoor Tony Age:50 yrs Sex:Male :1965 Arrival Date:07/17/2016 Time:17:52 Bed1 Private MD:Marcos, [facility] Diagnosis:Gastritis;Bursitis Olecranon Presentation: 07/17 18:03 Acuity: BRANDEN 3 st 18:13 Presenting complaint: Patient states: pt has pain and redness in his right elbow this st has been developing for 2 days. pt has also noted abd swelling and some RUQ pain. pt is a recovering alcoholic he got out of detox about one week ago he has had one drink since about three days ago. pt also has a hx of hep C. Transition of care: Home. 18:13 Method Of Arrival: Private Vehicle st Triage Assessment: 18:00 General: Appears uncomfortable, Behavior is cooperative. Pain: Complains of pain in st left upper quadrant and right elbow Pain currently is 10 out of 10 on a pain scale. Pain began pain is worst in his elbow the abd pain comes and goes but has dropped him to the floor once today. EENT: Oral mucosa is dry. Neuro: No deficits noted. Cardiovascular: tachy. Heart tones present. Respiratory: Airway is patent Respiratory effort is even, unlabored, Respiratory pattern is regular, symmetrical, Breath sounds are clear bilaterally. GI: Abdomen is distended, Abd is soft X 4 quads distended. Reports upper abdominal pain. Derm: Skin temperature is hot the right elbow is red and warm to the touch warmer then the rest of the skin. Historical: - Allergies: No known drug Allergies; - Home Meds: 1. Omeprazole Oral 2. amlodipine oral 3. beclomethasone 4. Hydroxyzine Pamoate Oral 5. ipratropium-albuterol Inhl 6. Bupropion Oral 7. Famotidine Oral 8. gabapentin oral 9. Metoprolol Tartrate Oral 10. Mirtazapine Oral - PMHx: hep C; DEPRESSION; HYPERTENSION; - PSHx: lung; - Tetanus: unknown. - Ebola Screening: : Patient denies exposure to infectious person. Patient denies travel to an Ebola-affected area in the 21 days before illness onset. . - Social history: Smoking status: Patient uses tobacco products, current every day smoker. Patient uses alcohol trying to stop. marijuana. Screenin:47 Infectious Disease Risk Hepatitis. Abuse screen: Denies threats or abuse. Denies st injuries from another. Nutritional screening: chronic ETOH use. Assessment: 20:57 GI: Bowel sounds present X 4 quads. lb Vital Signs: 18:00 BP 126 / 104; Pulse 123; Resp 18; Temp 103.1; Pulse Ox 91% on R/A; Pain 10/10; st 19:19 BP 115 / 83; Pulse 90; Resp 16; Pulse Ox 94% on 2 lpm NC; Pain 8/10; lb 19:29 Temp 101; lb 20:49 BP 115 / 88; Pulse 110; Resp 20; Pulse Ox 94% ; Pain 7/10; lb ED Course: 17:54 Patient arrived in ED. ama 17:54 [facility] is Private Physician. ama 18:00 Hawk Royal MD is Attending Physician. sc 18:03 Krystina Nicolas RN is Primary Nurse. st 18:[address] 18:13 Inserted peripheral IV: 20 gauge in right antecubital area and blood collected. st 18:48 Oxygen Oxygen administration via nasal cannula @ 2L/min. st 18:48 Valuables Remains with patient Patient has correct armband on for positive st identification. Placed in gown. Bed in low position. Call light in reach. Side rails up X 1. Pulse Ox - RN Monitoring Only NIBP On - RN Monitoring Only. 20:22 Loi Miranda MD is Referral Physician. sc 20:50 Discontinued lock intact, bleeding controlled. lb 20:58 Discontinued. lb Administered Medications: Completed: Banana Bag - (NS 0.9% 1000 ml, folic acid 600 mcg, Thiamine 100 mg, Multivitamin 10 ml, Magnesium Sulfate 1 grams) IV at calculated rate once 18:29 Drug: Pepcid 20 mg; Route: IVPB; Site: right antecubital; st 19:35 Follow up: Response: Pain is decreased lb 20:56 Follow up: IV Status: Completed infusion; IV Intake: 100ml lb 18:29 Drug: GI Cocktail w/o Donnatol - (Maalox Suspension 30 ml, Lidocaine Liquid 2 % 15 ml); st Route: PO; 19:35 Follow up: Response: Pain is decreased lb 18:38 Drug: Banana Bag - (NS 0.9% 1000 ml, folic acid 600 mcg, Thiamine 100 mg, Multivitamin st 10 ml, Magnesium Sulfate 1 grams); Route: IV; Rate: calculated rate; Site: right antecubital; 19:36 Follow up: Response: No adverse reaction; IV Intake: 1000ml lb 20:56 Follow up: IV Status: Completed infusion; IV Intake: 1000ml lb 18:38 Drug: Tylenol 487 mg; Route: PO; st 20:26 Drug: Bactrim (160 mg-800 mg (DS) 1 tabs; Route: PO; lb 20:56 Follow up: Response: Pharmacy closed - take home med pack lb 20:26 Drug: oxyCODONE 5 mg; Route: PO; lb 20:56 Follow up: Response: Pharmacy closed - take home med pack lb Point of Care Testing: Urine Dip: 19:29 pH: 5.5; ; Specific [place]: 1.030; Ketones: Negative; Glucose: Negative; Protein: lb Negative; Leukocytes: Negative; Nitrite: Negative ; Blood: Negative; Bilirubin: Negative ; Urobilinogen: Normal Intake: 19:36 IV: 1000ml; Total: 1000ml. lb 20:56 IV: 1000ml; Total: 2000ml. lb 20:56 IV: 100ml; Total: 2100ml. lb 20:57 IV: 1100ml (NS); Total: 3200ml. lb Output: 20:57 Urine: 200ml (Voided); Total: 200ml. lb Outcome: 20:22 Discharge ordered by . sc 20:49 Discharged to home ambulatory. lb 20:49 Condition: improved 20:49 Discharge Assessment: Patient awake, alert and oriented x 3. No cognitive and/or functional deficits noted. Patient verbalized understanding of disposition instructions. 20:49 Instructed on discharge instructions, follow up and referral plans. 20:49 IV D/Tylor 20:58 Patient left the ED. lb Signatures: Krystina Nicolas RN RN st Chew, Scott, MD MD sc Averdick, Andrew, Helen York lb
== END 2016-07-17 20:59 | disposition home or self-care (01) ==
LOC: ER 17:52
DX: K29.70 Gastritis, unspecified, without bleeding (principal); M70.21 Olecranon bursitis, right elbow; I10 Essential (primary) hypertension; Z79.899 Other long term (current) drug therapy; B19.20 Unspecified viral hepatitis C without hepatic coma
CPT/HCPCS: 80048; 80076; 80320; 83690; 85025; 96365; 96367; 96368; 99284; J3475; J7030

== ENCOUNTER 2016-10-18 09:20 | Emergency (ER) | payer MEDICAID ==
[2016-10-18 09:55] LABS: BASOPHIL# 0.1 X 10^3uL (0.0-0.1); BASOPHILS 1.4 % (0.0-2.0); EOSINOPHILS# 0.1 X 10^3uL (0.0-0.4); HEMATOCRIT 46.1 % (42.0-54.0); HEMOGLOBIN 15.8 g/dL (14.0-18.0); LYMPHOCYTES 45.1 % (20.0-40.0); MEAN CELL VOLUME 92.3 fL (80.0-100.0); MEAN CORPUS. HGB CONCENTRATION 34.3 g/dL (32.0-36.0); MEAN CORPUSCULAR HEMOGLOBIN 31.7 pg (29.0-35.0); MEAN PLATELET VOLUME 7.3 fL (7.4-10.4); MONOCYTES 8.3 % (2.0-10.0); MONOCYTES# 0.7 X 10^3uL (0.2-1.0); NEUTROPHILS 44.2 % (54.0-75.0); NEUTROPHILS# 3.8 X 10^3uL (2.6-6.7); PLATELET COUNT 292 X 10^3uL (130-440); RED CELL DISTRIBUTION WIDTH 13.7 % (11.5-14.5); WHITE BLOOD COUNT 8.7 X 10^3uL (3.9-10.7)
[2016-10-18 10:14] LABS: BLOOD UREA NITROGEN 11 mg/dL (9-20); CALCIUM 8.8 mg/dL (8.4-10.2); CHLORIDE 111 mmol/L (98-107); EST GLOMERULAR FILTRATION RATE > 60 mL/min; GLUCOSE 96 mg/dL (70-100); POTASSIUM 3.9 mmol/L (3.5-5.1); SODIUM 146 mmol/L (137-145)
[2016-10-18 10:15] LABS: ALBUMIN 4.3 g/dL (3.5-5.0); ALKALINE PHOSPHATASE 77 U/L (38-126); ALT 44 U/L (21-72); AST 41 U/L (17-59); BILIRUBIN, DIRECT 0.1 mg/dL (0.0-0.4); BILIRUBIN, TOTAL 0.4 mg/dL (0.2-1.3); LIPASE 263 U/L (23-300); MAGNESIUM 2.2 mg/dL (1.6-2.3); TOTAL PROTEIN 7.9 g/dL (6.3-8.2)
[2016-10-18] MEDS ORDERED: MAGNESIUM SULFATE 1 GM/2 ML VIAL ONE (10:16)
[2016-10-18 10:17] LABS: ETHYL ALCOHOL 344 mg/dL (<10)
[2016-10-18] MEDS ORDERED: NORMAL SALINE 1,000 ML IV ONE (10:17)
[2016-10-18] MEDS ORDERED: MULTIVITAMINS 10 ML VIAL IV ONE (10:17)
[2016-10-18] MEDS ORDERED: THIAMINE HCL 200 MG/2 ML VIAL ONE (10:17)
[2016-10-18] MEDS ORDERED: HALOPERIDOL 5 MG/ML VIAL ONE (10:33)
[2016-10-18] MEDS ORDERED: ONDANSETRON HCL 4 MG/2 ML VIAL ONE (10:45)
--- NOTE | 2016-10-18 11:38 | ER PHYSICIAN DOCUMENTATION ---
Physician Documentation [facility] Name:Mansoor Tony Age:50 yrs Sex:Male :1965 Arrival Date:10/18/2016 Time:09:20 Bed5 Private MD: Hawk Oneill Disposition: 10/18/16 10:44 Transfer ordered to [facility]. Diagnosis are Major Depression with Suicidal Ideation, Alcohol Abuse, Suicidal Ideations. - Reason for transfer: Specialty. - Accepting physician is Dr. Wood. - Condition is Serious. - Problem is an acute exacerbation. - Symptoms are unchanged. COBRA Form completed? Yes Transfer - Mode of Transportation Ambulance HPI: 10/18 10:36 This 50 yrs old Male presents to ER via Private Vehicle with complaints of sc ETOH Abuse. 10:36 The patient presents to the emergency department with depression, a history of sc substance abuse, suicide ideation, and the patient has a plan, trying to drink himself to . Onset: The symptom(s)/episode began/occurred 3 day(s) ago. Past psychiatric history: Prior diagnosis: depression, Psychiatric medications include: none, the patient has a previous inpatient psychiatric history, last month. Associated signs and symptoms: Pertinent positives; anxiety, substance abuse. Severity of symptoms: At their worst the symptoms were incapacitating. The patient has experienced similar episodes in the past, several times, but today's symptoms are worse. Historical: - Allergies: No known drug Allergies; - Home Meds: 1. Omeprazole Oral 2. amlodipine oral - PMHx: DEPRESSION; HYPERTENSION; hep C; Gastritis (July 17, 2016); Bursitis Olecranon (July 17, 2016); - PSHx: lung; - Immunization history: Flu Vaccine < 1 year. - Tetanus: unknown. - Ebola Screening: : Patient negative for fever greater than or equal to 101.5 degrees Fahrenheit, and additional compatible Ebola Virus Disease symptoms. Patient denies exposure to infectious person. Patient denies travel to an Ebola-affected area in the 21 days before illness onset. No symptoms or risks identified at this time. . - Social history: Smoking status: Patient uses alcohol marijuana. ROS: 10:38 Constitutional: Negative for fever, chills, and weight loss. sc Eyes: Negative for injury, pain, redness, and discharge. ENT: Negative for injury, pain, and discharge. Neck: Negative for injury, pain, and swelling. Cardiovascular: Negative for chest pain, palpitations, and edema. Respiratory: Negative for shortness of breath, cough, wheezing, and pleuritic chest pain. Abdomen/GI: Negative for abdominal pain, nausea, vomiting, diarrhea, and constipation. Back: Negative for injury and pain. MS/Extremity: Negative for injury and deformity. Skin: Negative for injury, rash, and discoloration. 10:38 Neuro: Negative for headache, weakness, numbness, tingling, and seizure. sc 10:38 Psych: Positive for anxiety, depression, alcohol dependence, suicidal ideation. Exam: Constitutional: This is a well developed, well nourished patient who is awake, alert, and in no acute distress. Head/Face: Normocephalic, atraumatic. Eyes: Pupils equal round and reactive to light, extra-ocular motions intact. Lids and lashes normal. Conjunctiva and sclera are non-icteric and not injected. Cornea within normal limits. Periorbital areas with no swelling, redness, or edema. ENT: Nares patent. No nasal discharge, no septal abnormalities noted. Tympanic membranes are normal and external auditory canals are clear. Oropharynx with no redness, swelling, or masses, exudates, or evidence of obstruction, uvula midline. Mucous membranes moist. Neck: Trachea midline, no thyromegaly or masses palpated, and no cervical lymphadenopathy. Supple, full range of motion without nuchal rigidity, or vertebral point tenderness. No meningismus. Chest/axilla: Normal chest wall appearance and motion. Nontender with no deformity. No lesions are appreciated. Cardiovascular: Regular rate and rhythm with a normal S1 and S2. No gallops, murmurs, or rubs. Normal PMI, no JVD. No pulse deficits. Respiratory: Lungs have equal breath sounds bilaterally, clear to auscultation and percussion. No rales, rhonchi or wheezes noted. No increased work of breathing, no retractions or nasal flaring. Abdomen/GI: Soft, non-tender, with normal bowel sounds. No distension or tympany. No guarding or rebound. No evidence of tenderness throughout. Back: No spinal tenderness. No costovertebral tenderness. Full range of motion. 10:38 Skin: Warm, dry with normal turgor. Normal color with no rashes, no lesions, and no sc evidence of cellulitis. 10:38 Psych: Behavior/mood is anxious, aggressive, angry, Affect is animated, Oriented to person, place, time, Patient having thoughts of suicide. Plan for suicide is alcohol poisoning Judgement / Insight is impaired. Delusions/hallucinations are not present. Vital Signs: 09:25 BP 143 / 97; Pulse 83; Resp 16; Pulse Ox 93% on R/A; tg 11:19 Pulse 76; Resp 16 S; Pulse Ox 94% on 2 lpm NC; tg MDM: 09:37 Patient medically screened. sc 10:39 Differential diagnosis: drug withdrawal. acute psychotic break, depression, psychosis sc secondary to non-compliance. Data reviewed: vital signs, nurses notes, old medical records, lab test result(s), and as a result, I will *Transfer Patient. Counseling: I had a detailed discussion with the patient and/or guardian regarding: the historical points, exam findings, and any diagnostic results supporting the discharge/admit diagnosis, lab results, the need to transfer to another facility, [facility] does not immediately have the required specialist. Physician consultation: Dr. Wood was called at 10:43, was contacted at 10:43, regarding patient's condition. 10/18 09:59 Order name: CBC AUTO DIF, MDIF/RMOR IF IND; Complete Time: 10: EDMT 10/18 10:08 Interpretation: Normal. ga 10/18 10:17 Order name: BASIC METABOLIC PANEL; Complete Time: 10:19 EDMT 10/18 10:17 Order name: MAGNESIUM; Complete Time: 10:19 EDMT 10/18 10:17 Order name: HEPATIC PANEL; Complete Time: 10:19 EDMT 10/18 10:17 Order name: LIPASE; Complete Time: 10:19 EDMS 10/18 10:17 Order name: ETHYL ALCOHOL; Complete Time: 10:19 EDMT 10/18 09:44 Order name: I & O ga 10/18 09:44 Order name: NPO ga 10/18 09:44 Order name: Pulse Ox Continuous sc Dispensed Medications: 10:10 Drug: Banana Bag - (NS 0.9% 1000 ml, folic acid 600 mcg, Thiamine 100 mg, Multivitamin tg 10 ml, Magnesium Sulfate 1 grams); Route: IV; Rate: calculated rate; Site: right forearm; 11:30 Follow up: IV Status: Completed infusion; IV Intake: 1000ml tg 10:14 CANCELLED (Physician Discretion): Tylenol 650 mg PO once sc 10:14 CANCELLED (Physician Discretion): Rocephin 1 grams IVPB once sc 10:14 CANCELLED (Physician Discretion): Clindamycin 300 mg IVPB once sc 11: Drug: Zofran 4 mg; Route: IVP; Infused Over: 2 mins; Site: right forearm; tg 11:25 Follow up: Response: No adverse reaction tg 11:21 Drug: Haldol 5 mg; Route: IVP; Site: right forearm; tg 11:25 Follow up: Response: No adverse reaction tg Signatures: Adalberto Hinton RN RN tg Hawk Royal MD MD ga
--- NOTE | 2016-10-18 11:38 | ER NURSING DOCUMENTATION ---
Nurse's Notes [facility] Name:Mansoor Tony Age:50 yrs Sex:Male :1965 Arrival Date:10/18/2016 Time:09:20 Bed5 Private MD: Diagnosis:Alcohol Abuse;Suicidal Ideations;Major Depression with Suicidal Ideation Presentation: 10/18 09:22 Acuity: BRANDEN 2 tg 09:25 Presenting complaint: clam shucker reports that pt had stopped drinking for two months, tg but has relapsed. Drinking "a lot.". Transition of care: patient was not received from another setting of care. 09:25 Method Of Arrival: Private Vehicle tg Triage Assessment: 09:41 General: Appears in no apparent distress, Behavior is restless, loud. Tooling Mechanic is able tg to redirect pt and keep him in bed and relatively calm, with occasional vocal outbursts. Pain: Denies pain. Neuro: Level of Consciousness is awake. Cardiovascular: Capillary refill < 3 seconds. Respiratory: Respiratory effort is even, unlabored. Derm: Skin is pink, warm & dry. Historical: - Allergies: No known drug Allergies; - Home Meds: 1. Omeprazole Oral 2. amlodipine oral - PMHx: DEPRESSION; HYPERTENSION; hep C; Gastritis (July 17, 2016); Bursitis Olecranon (July 17, 2016); - PSHx: lung; - Immunization history: Flu Vaccine < 1 year. - Tetanus: unknown. - Ebola Screening: : Patient negative for fever greater than or equal to 101.5 degrees Fahrenheit, and additional compatible Ebola Virus Disease symptoms. Patient denies exposure to infectious person. Patient denies travel to an Ebola-affected area in the 21 days before illness onset. No symptoms or risks identified at this time. . - Social history: Smoking status: Patient uses alcohol marijuana. Screenin:28 Infectious Disease Risk Hepatitis. Abuse screen: Denies threats or abuse. Denies tg injuries from another. Nutritional screening: No deficits noted. Assessment: 09:44 Neuro: Gait is unsteady, Pt ambulated in with clam shucker helping to steady him. . tg 10:13 Reassessment: Pt's clam shucker reports that pt is getting "antsy" and asked if there is tg anything we can give him. dr. royal notified. . 10:25 Reassessment: Pt appears to be sleeping. Regular, even resps. Skin PWD, Tooling Mechanic at tg bedside. Psych: 09:45 Subjective: Patient's mood is irritable, Delusions are Hallucinations are denied Having tg thoughts of suicide. Per clam shucker, pt has stated he plans to "drink himself to ," and has switched to hard alcohol to try to accomplish this. 09:45 Objective: Patient is belligerent, challenging, irritable, Speech is loud. Patient uses tg Patient uses marijuana. Commitment: Dr. Royal speaking to Pt's clam shucker about possible transfer to [facility] for MH evaluation. Vital Signs: 09:25 BP 143 / 97; Pulse 83; Resp 16; Pulse Ox 93% on R/A; tg 11:19 Pulse 76; Resp 16 S; Pulse Ox 94% on 2 lpm NC; tg ED Course: 09:21 Patient arrived in ED. ds 09:22 Triage completed. tg 09:25 Adalberto Hinton RN is Primary Nurse. tg 09:27 Valuables Remains with patient. Pulse Ox - RN Monitoring Only. tg 09:37 Hawk Royal MD is Attending Physician. sc 09:40 Inserted peripheral IV: 20 gauge in right forearm and blood collected. tg Administered Medications: 10:10 Drug: Banana Bag - (NS 0.9% 1000 ml, folic acid 600 mcg, Thiamine 100 mg, Multivitamin tg 10 ml, Magnesium Sulfate 1 grams); Route: IV; Rate: calculated rate; Site: right forearm; 11:30 Follow up: IV Status: Completed infusion; IV Intake: 1000ml tg 10:14 CANCELLED (Physician Discretion): Tylenol 650 mg PO once sc 10:14 CANCELLED (Physician Discretion): Rocephin 1 grams IVPB once sc 10:14 CANCELLED (Physician Discretion): Clindamycin 300 mg IVPB once sc 11:21 Drug: Zofran 4 mg; Route: IVP; Infused Over: 2 mins; Site: right forearm; tg 11:25 Follow up: Response: No adverse reaction tg 11:21 Drug: Haldol 5 mg; Route: IVP; Site: right forearm; tg 11:25 Follow up: Response: No adverse reaction tg Intake: 10:30 IV: 1000ml; Total: 1000ml. tg 11:30 IV: 1000ml; Total: 2000ml. tg Outcome: 10:44 ER care complete, transfer ordered by . sc 11:37 Patient left the ED. tg Signatures: Adalberto Hinton RN RN tg Maria Del Carmen Ahn, Reg Reg ds Hawk Royal MD MD sc
== END 2016-10-18 11:38 | disposition short-term general hospital (02) ==
LOC: ER 09:20
DX: F32.9 Major depressive disorder, single episode, unspecified (principal); R45.851 Suicidal ideations; F10.229 Alcohol dependence with intoxication, unspecified; I10 Essential (primary) hypertension; B19.20 Unspecified viral hepatitis C without hepatic coma; Z79.899 Other long term (current) drug therapy; Z99.89 Dependence on other enabling machines and devices; Z74.3 Need for continuous supervision
CPT/HCPCS: 80048; 80076; 80320; 83690; 83735; 85025; 96365; 96375; 99284; A0425; A0429; J1630; J2405; J3475; J7030